=== PATIENT | female | born 1960 | race Native Hawaiian/Other Pacific Islander ===

== ENCOUNTER 2017-05-08 20:51 | Emergency (ER) | payer BC ==
[2017-05-08 21:00] VITALS: BMI 28.1
[2017-05-08 21:02] VITALS: BP 143/66; PULSE 67; RESP 18; TEMP 98.2; O2SAT 99
[2017-05-08] MEDS ORDERED: Lidocaine 5% Patch TD STA (21:16)
--- NOTE | 2017-05-08 21:16 | ED PDOC ---
Arrival/HPI - General Historian: Patient <Lemuel Huggins - Last Filed: 05/08/17 22:58> <Roland Ma - Last Filed: 05/08/17 23:16> - General Chief Complaint: Upper Extremity Problem/Injury Time Seen by Provider: 05/08/17 21:10 - History of Present Illness Narrative History of Present Illness (Text): 05/08/17 21:11 56 y/o female, no significant pmh, nkda, c/o lt. sided neck and shoulder pain x 2 days with no fall or trauma. Pt. stated that she woke up with the left sided neck pain yesterday, radiating to the lt. shoulder joint region, no numbness or tingling, aggravated by movement, no chest pain or shortness of breath, no palpitation, no night sweat, no rash, no other medical or psychological complaints. (Lemuel Huggins) Past Medical History - Provider Review Nursing Documentation Reviewed: Yes - Infectious Disease Hx of Infectious Diseases: None - Tetanus Immunization Tetanus Immunization: Unknown - Psychiatric Hx Depression: No Hx Emotional Abuse: No Hx Physical Abuse: No Hx Substance Use: No - Anesthesia Hx Anesthesia: No - Suicidal Assessment Feels Threatened In Home Enviroment: No <Lemuel Huggins - Last Filed: 05/08/17 22:58> Family/Social History - Physician Review Nursing Documentation Reviewed: Yes Family/Social History: Unknown Family HX Smoking Status: Never Smoked Hx Alcohol Use: No Hx Substance Use: No <Lemuel Huggins - Last Filed: 05/08/17 22:58> Allergies/Home Meds <Lemuel Huggins - Last Filed: 05/08/17 22:58> <Roland Ma - Last Filed: 05/08/17 23:16> Allergies/Adverse Reactions: Allergies No Known Allergies Allergy (Verified 06/06/13 17:50) Review of Systems - Review of Systems Constitutional: absent: Fatigue, Fevers Eyes: absent: Vision Changes Respiratory: absent: SOB, Cough Cardiovascular: absent: Chest Pain Gastrointestinal: absent: Abdominal Pain, Diarrhea, Nausea, Vomiting Musculoskeletal: Arthralgias, Neck Pain, Myalgias. absent: Back Pain, Joint Swelling Neurological: absent: Headache, Dizziness, Focal Weakness <Lemuel Huggins - Last Filed: 05/08/17 22:58> Physical Exam Vital Signs Reviewed: Yes Temperature: Afebrile Blood Pressure: Normal Pulse: Regular Respiratory Rate: Normal Appearance: Positive for: Well-Appearing, Non-Toxic Pain Distress: Severe Mental Status: Positive for: Alert and Oriented X 3 - Systems Exam Head: Present: Atraumatic, Normocephalic Pupils: Present: PERRL Extroacular Muscles: Present: EOMI Conjunctiva: Present: Normal Mouth: Present: Moist Mucous Membranes Neck: Present: Paraspinal Tenderness, Trachea Midline, Other (Cervical: +ttp and spasm on the lt. paraspinal to the trapezius region, no rash, no ecchymosis , FROM without limitation, sensation intact, motor 5/5. ). No: Meningeal Signs , MIDLINE TENDERNESS, Lymphadenopathy Respiratory/Chest: Present: Clear to Auscultation, Good Air Exchange. No: Respiratory Distress, Accessory Muscle Use Cardiovascular: Present: Regular Rate and Rhythm, Normal S1, S2. No: Murmurs Abdomen: Present: Normal Bowel Sounds. No: Tenderness, Distention, Peritoneal Signs Back: Present: Normal Inspection Upper Extremity: Present: Normal Inspection, Other (LUE: no tenderness or swelling, no deformity, FROM without limitation, sensation intact, motor 5/5. ) . No: Cyanosis, Edema Neurological: Present: GCS=15, CN II-XII Intact, Speech Normal Skin: Present: Warm, Dry, Normal Color. No: Rashes Psychiatric: Present: Alert, Oriented x 3, Normal Insight, Normal Concentration <Lemuel Huggins - Last Filed: 05/08/17 22:58> Medical Decision Making - EKG Interpretation Interpreted by ED Physician: Yes Type: 12 lead EKG Comparison: No previous EKG avail. <Lemuel Huggins - Last Filed: 05/08/17 22:58> <Roland Ma - Last Filed: 05/08/17 23:16> ED Course and Treatment: 05/08/17 21:20 -toradol IM/percocet/valium/lidoderm patch -EKG -Observe and reasses 05/08/17 22:58 -Pain decreased, pt. feels much better, will discharge home. -EKG: NSR @ 72 BPM, no ST elevation or depression, no T wave inversion. -Discharge home with naproxen, flexeril, lidoderm patch, heat compression, avoid strenuous exercise or activity, follow up with your own pmd within 2 days , return to the ER for any new or worsening signs or symptoms. (Lemuel Huggins) - EKG Interpretation EKG Interpretation (Text): 05/08/17 21:52 NSR @ 72 BPM, no ST elevation or depression, no T wave inversion. (Lemuel Huggins) - Medication Orders Current Medication Orders: Discontinued Medications Diazepam (Valium) 5 mg PO ONCE ONE PRN Reason: Protocol Stop: 05/08/17 21:17 Last Admin: 05/08/17 22:32 Dose: 5 mg Ketorolac Tromethamine (Toradol) 60 mg IM STAT STA Stop: 05/08/17 21:17 Last Admin: 05/08/17 22:30 Dose: 60 mg Lidocaine (Lidoderm) 1 ea TD STAT STA Stop: 05/08/17 21:17 Last Admin: 05/08/17 22:33 Dose: 1 ea Oxycodone/Acetaminophen (Percocet 5/325 Mg Tab) 1 tab PO STAT STA Stop: 05/08/17 21:18 Last Admin: 05/08/17 22:33 Dose: 1 tab - PA / WIRE COATER / Resident Statement LIDA has reviewed & agrees with the documentation as recorded. <Lemuel Huggins - Last Filed: 05/08/17 22:58> - PA / WIRE COATER / Resident Statement LIDA has reviewed & agrees with the documentation as recorded. LIDA has examined the patient and agrees with the treatment plan. <Roland Ma - Last Filed: 05/08/17 23:16> Disposition/Present on Arrival - Present on Arrival Any Indicators Present on Arrival: No History of DVT/PE: No History of Uncontrolled Diabetes: No Urinary Catheter: No History of Decub. Ulcer: No History Surgical Site Infection Following: None - Disposition Have Diagnosis and Disposition been Completed?: Yes Disposition Time: 21:21 Patient Plan: Discharge <Lemuel Huggins - Last Filed: 05/08/17 22:58> <Roland Ma - Last Filed: 05/08/17 23:16> - Disposition Diagnosis: Trapezius muscle spasm, Cervical strain Disposition: HOME/ ROUTINE Patient Problems: Current Active Problems Problem Status Onset Cervical strain Acute Trapezius muscle spasm Acute Condition: GOOD Additional Instructions: -Discharge home with naproxen, flexeril, lidoderm patch, heat compression, avoid strenuous exercise or activity, follow up with your own pmd within 2 days , return to the ER for any new or worsening signs or symptoms. Prescriptions: Cyclobenzaprine [Cyclobenzaprine HCl] 10 mg PO TID PRN #21 tab PRN Reason: Other Lidocaine 5% [Lidoderm] 1 patch TP DAILY PRN #14 patch PRN Reason: Other Naproxen 500 mg PO BID PRN #22 tab PRN Reason: Other Referrals: Watson Marshall MD [Primary Care Provider] - Follow up with primary Forms: WORK NOTE
[2017-05-08] MEDS ORDERED: Oxycodone/Acetaminophen 5/325 mg Tab PO STA (21:17)
--- NOTE | 2017-05-09 17:40 | CARD ---
APPROVED REPORT EKG Measurement Heart [id number] <Conclusion> Normal sinus rhythm Normal ECG
== END 2017-05-08 23:00 | disposition home or self-care (01) ==
LOC: ED 20:51
DX: S16.1XXA Strain of muscle, fascia and tendon at neck level, initial encounter (principal); X58.XXXA Exposure to other specified factors, initial encounter; R25.2 Cramp and spasm
CPT/HCPCS: 93005; 96372; 99285; J1885